=== PATIENT | female | born 1985 | race Caucasian/White ===

== ENCOUNTER 2017-06-18 14:18 | Observation (INO) | payer OTHER ==
[2017-06-18] MEDS ORDERED: SODIUM CHLORIDE 0.9% 500 ML INFUS.BAG IV ONE ×3 (14:27→18:47)
[2017-06-18 14:46] LABS: PH,URINE 7.5 (4.5-8); URINE APPEARANCE Clear; URINE BILIRUBIN Negative (NEGATIVE); URINE BLOOD Negative (NEGATIVE); URINE GLUCOSE (UA) Negative (NEGATIVE); URINE KETONE 1+ (NEGATIVE); URINE LEUK ESTERASE Negative (NEGATIVE); URINE NITRITE Negative (NEGATIVE); URINE PROTEIN 3+ (NEGATIVE); URINE UROBILINOGEN 0.2 (0.2-1.0)
[2017-06-18 14:47] LABS: URINE COLOR YELLOW
[2017-06-18 15:04] LABS: BASO % 1.6 % (0-2.0); EOS % 0.6 % (0-4.5); HEMATOCRIT 42.5 % (32.4-45.2); HEMOGLOBIN 14.1 GM/dl (10.7-15.3); LYMPH % 14.5 % (8-40); MCH 34.8 pg (25.7-33.7); MCHC 33.1 g/dl (32.0-36.0); MEAN CELL VOLUME 105.1 fl (80-96); MONO % 11.1 % (3.8-10.2); NEUT % 72.2 % (42.8-82.8); PLATELET COUNT 205 K/MM3 (134-434); RBC 4.05 M/mm3 (3.60-5.2); RDW 13.3 % (11.6-15.6); WHITE BLOOD COUNT 8.1 K/mm3 (4.0-10.8)
[2017-06-18 15:15] LABS: ACTIVATED PTT 30.3 SECONDS (24.0-38.9)
[2017-06-18 15:18] LABS: ALBUMIN 4.2 g/dl (3.5-5.0); ALK PHOS 46 U/L (32-92); ANION GAP 15 (8-16); BILIRUBIN,TOTAL 0.7 mg/dl (0.2-1.0); BLOOD UREA NITROGEN 6 mg/dl (7-18); CALCIUM 9.8 mg/dl (8.4-10.2); CHLORIDE 98 mmol/L (98-107); CO2 21 mmol/L (22-28); CREATININE 0.7 mg/dl (0.6-1.3); GLUCOSE,RANDOM 167 mg/dl (74-106); MAGNESIUM 1.5 mg/dL (1.8-2.4); POTASSIUM 4.4 mmol/L (3.5-5.1); SGOT/AST 86 U/L (10-42); SGPT/ALT 31 U/L (10-40); SODIUM 134 mmol/L (136-145); TOT PROT 7.4 g/dl (6.4-8.3)
[2017-06-18 15:20] LABS: INR 0.97 (0.82-1.09); PROTHROMBIN TIME (PATIENT) 10.9 SEC (10.2-13.0)
[2017-06-18 15:26] LABS: URINE RBC 0-2 /hpf (0-3); URINE WBC 0-1 (0-5)
[2017-06-18 15:27] LABS: URINE BACTERIA FEW /hpf (NEGATIVE)
--- NOTE | 2017-06-18 15:46 | PDOC ---
History of Present Illness <Jesus Craft - Last Filed: 06/18/17 20:22> - History of Present Illness Initial Comments: 06/18/17 19:28 Patient is a 32 year old female with no significant past medical history who was brought by EMS to the ED s/p seizure that occurred 1 hour prior to arrival. As per EMS patient was seen unresponsive and violently shaking on the floor in the restaurant, prompting the staff to call 911. EMS reports patient was conscious and confused about the situation when they appeared on scene. On arrival to ED patient states she is currently in the ED due to her mother being sick, and states she did not have a seizure. Pt noted to have urine incontinence on arrival as well. As per patient's father, patient has been currently dieting intensely and has had multiple episode of fainting over the last few months. Patient is currently talking and active in the ED. EMS reports patient's blood glucose level at the scene was 122. 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 Denies depression, SI /HI. Denies chest pain, Sob. Denies nausea, vomiting. Denies fevers, chills. Denies change in vision, head pain. Denies weakness, slurred speech. Denies any other symptoms. Allergies: None Social history: Lives with parents. +occasional glass of wine. No illicit drugs. No smoking. Surgical history: None PMD: None <Gerald Byers - Last Filed: 06/19/17 17:08> - General Chief Complaint: Seizure Stated Complaint: SEIZURE Time Seen by Provider: 06/18/17 14:26 Past History <Jesus Craft - Last Filed: 06/18/17 20:22> - Past Medical History COPD: No Other medical history: denies - Suicide/Smoking/Psychosocial Hx Smoking History: Never smoked Hx Alcohol Use: No Drug/Substance Use Hx: No Substance Use Type: None <Gerald Byers - Last Filed: 06/19/17 17:08> - Past Medical History Allergies/Adverse Reactions: Allergies Allergy/AdvReac Type Severity Reaction Status Date / Time No Known Allergies Allergy Verified 06/18/17 14:21 Home Medications: Ambulatory Orders NK [No Known Home Medication] 06/18/17 Review of Systems - Review of Systems Comments:: 06/18/17 19:28 GENERAL/CONSTITUTIONAL: No fever or chills. No weakness. HEAD, EYES, EARS, NOSE AND THROAT: No change in vision. No ear pain or discharge. No sore throat. GASTROINTESTINAL: No nausea, vomiting, diarrhea or constipation. GENITOURINARY: No dysuria, frequency, or change in urination. CARDIOVASCULAR: No chest pain or shortness of breath. RESPIRATORY: No cough, wheezing, or hemoptysis. MUSCULOSKELETAL: No joint or muscle swelling or pain. No neck or back pain. SKIN: No rash NEUROLOGIC: No headache, vertigo, change in strength/sensation. +LOC ENDOCRINE: No increased thirst. No abnormal weight change. HEMATOLOGIC/LYMPHATIC: No anemia, easy bleeding, or history of blood clots. ALLERGIC/IMMUNOLOGIC: No hives or skin allergy. <Gerald Byers - Last Filed: 06/19/17 17:08> *Physical Exam - Vital Signs Last Vital Signs Temp Pulse Resp BP Pulse Ox 98.5 F 116 H 16 123/76 100 06/18/17 14:19 06/18/17 17:11 06/18/17 17:11 06/18/17 17:11 06/18/17 17:11 <Jesus Craft - Last Filed: 06/18/17 20:22> - Vital Signs Last Vital Signs Temp Pulse Resp BP Pulse Ox 98.5 F 101 H 18 123/82 100 06/18/17 14:19 06/18/17 15:33 06/18/17 15:33 06/18/17 15:33 06/18/17 15:33 - Physical Exam Comments: 06/18/17 19:28 GENERAL: Awake, alert, and fully oriented, in no acute distress HEAD: No signs of trauma EYES: PERRLA, EOMI, sclera anicteric, conjunctiva clear ENT: +superficial abrasion to R lip +Dry mucus membrane. +Poor dentition. Auricles normal inspection, hearing grossly normal, nares patent, oropharynx clear without exudates. NECK: Normal ROM, supple, no lymphadenopathy, JVD, or masses LUNGS: Breath sounds equal, clear to auscultation bilaterally. No wheezes, and no crackles HEART: +tachycardic to 122 but regular, normal S1 and S2, no murmurs, rubs or gallops ABDOMEN: Soft, nontender, normoactive bowel sounds. No guarding, no rebound. No masses EXTREMITIES: Normal range of motion, no edema. No clubbing or cyanosis. No cords , erythema, or tenderness NEUROLOGICAL: Normal speech, cranial nerves intact, negative pronator drift, 5/ 5 strength in all 4 extremities, normal sensation to light touch in all 4 extremities, normal cerebellar exam, normal gait, normal reflexes and tone PSYCH: +Psychomotor agitation during interview SKIN: Warm, Dry, normal turgor, no rashes noted. R hand with 1mm superficial abrasion on dorsal aspect of 4th digit <ZeeshanYomna - Last Filed: 06/19/17 17:08> Heart Score/ECG Review #1 06/19/17 16:51 My read: Sinus tachy,rate 101, normal axis, no ELISHA. +prolonged QT 500 <ZeeshanDarianmna - Last Filed: 06/19/17 17:08> ED Treatment Course - LABORATORY CBC & Chemistry Diagram: 06/18/17 14:45 06/18/17 14:45 - ADDITIONAL ORDERS Additional order review: Laboratory Results 06/18/17 06/18/17 06/18/17 18:40 16:29 16:29 PT with INR INR PTT (Actin FS) D-Dimer Sodium Potassium Chloride Carbon Dioxide Anion Gap BUN Creatinine Creat Clearance w eGFR Random Glucose Lactic Acid 1.2 Calcium Magnesium Total Bilirubin AST ALT Alkaline Phosphatase Creatine Kinase 73 Troponin I Total Protein Albumin Lipase TSH Free T4 0.78 Serum , Qual Urine Color Urine Appearance Urine pH Ur Specific [place] Urine Protein Urine Glucose (UA) Urine Ketones Urine Blood Urine Nitrite Urine Bilirubin Urine Urobilinogen Ur Leukocyte Esterase Urine RBC Urine WBC Urine Bacteria Urine HCG, Qual Opiates Screen Methadone Screen Barbiturate Screen Phencyclidine Screen Ur Amphetamines Screen MDMA (Ecstasy) Screen Benzodiazepines Screen Cocaine Screen U Marijuana (THC) Screen Alcohol, Quantitative Blood Type Antibody Screen 06/18/17 06/18/17 06/18/17 14:45 14:45 14:45 PT with INR 10.9 INR 0.97 PTT (Actin FS) D-Dimer Sodium Potassium Chloride Carbon Dioxide Anion Gap BUN Creatinine Creat Clearance w eGFR Random Glucose Lactic Acid Calcium Magnesium Total Bilirubin AST ALT Alkaline Phosphatase Creatine Kinase Troponin I 0.00 Total Protein Albumin Lipase TSH Free T4 Serum , Qual Urine Color Urine Appearance Urine pH Ur Specific [place] Urine Protein Urine Glucose (UA) Urine Ketones Urine Blood Urine Nitrite Urine Bilirubin Urine Urobilinogen Ur Leukocyte Esterase Urine RBC Urine WBC Urine Bacteria Urine HCG, Qual Opiates Screen Methadone Screen Barbiturate Screen Phencyclidine Screen Ur Amphetamines Screen MDMA (Ecstasy) Screen Benzodiazepines Screen Cocaine Screen U Marijuana (THC) Screen Alcohol, Quantitative < 5.0 L Blood Type Antibody Screen 06/18/17 06/18/17 06/18/17 14:45 14:45 14:45 PT with INR INR PTT (Actin FS) D-Dimer Sodium Potassium Chloride Carbon Dioxide Anion Gap BUN Creatinine Creat Clearance w eGFR Random Glucose Lactic Acid 6.8 H* Calcium Magnesium Total Bilirubin AST ALT Alkaline Phosphatase Creatine Kinase Troponin I Total Protein Albumin Lipase TSH Free T4 Serum , Qual Negative Urine Color Urine Appearance Urine pH Ur Specific [place] Urine Protein Urine Glucose (UA) Urine Ketones Urine Blood Urine Nitrite Urine Bilirubin Urine Urobilinogen Ur Leukocyte Esterase Urine RBC Urine WBC Urine Bacteria Urine HCG, Qual Opiates Screen Methadone Screen Barbiturate Screen Phencyclidine Screen Ur Amphetamines Screen MDMA (Ecstasy) Screen Benzodiazepines Screen Cocaine Screen U Marijuana (THC) Screen Alcohol, Quantitative Blood Type O NEGATIVE Antibody Screen Negative 06/18/17 06/18/17 06/18/17 14:45 14:45 14:45 PT with INR INR PTT (Actin FS) 30.3 D-Dimer 354 Sodium 134 L Potassium 4.4 Chloride 98 Carbon Dioxide 21 L Anion Gap 15 BUN 6 L Creatinine 0.7 Creat Clearance w eGFR > 60 Random Glucose 167 H Lactic Acid Calcium 9.8 Magnesium 1.5 L Total Bilirubin 0.7 AST 86 H ALT 31 Alkaline Phosphatase 46 Creatine Kinase Troponin I Total Protein 7.4 Albumin 4.2 Lipase 130 TSH 8.30 H Free T4 Serum , Qual Urine Color Urine Appearance Urine pH Ur Specific [place] Urine Protein Urine Glucose (UA) Urine Ketones Urine Blood Urine Nitrite Urine Bilirubin Urine Urobilinogen Ur Leukocyte Esterase Urine RBC Urine WBC Urine Bacteria Urine HCG, Qual Opiates Screen Negative Methadone Screen Negative Barbiturate Screen Negative Phencyclidine Screen Negative Ur Amphetamines Screen Negative MDMA (Ecstasy) Screen Negative Benzodiazepines Screen Negative Cocaine Screen Negative U Marijuana (THC) Screen Negative Alcohol, Quantitative Blood Type Antibody Screen 06/18/17 06/18/17 06/18/17 14:35 14:35 14:20 PT with INR INR PTT (Actin FS) D-Dimer Sodium Potassium Chloride Carbon Dioxide Anion Gap BUN Creatinine Creat Clearance w eGFR Random Glucose Lactic Acid Calcium Magnesium Total Bilirubin AST ALT Alkaline Phosphatase Creatine Kinase Troponin I Total Protein Albumin Lipase TSH Free T4 Serum , Qual Urine Color Yellow Urine Appearance Clear Urine pH 7.5 Ur Specific [place] 1.025 Urine Protein 3+ H Urine Glucose (UA) Negative Urine Ketones 1+ H Urine Blood Negative Urine Nitrite Negative Urine Bilirubin Negative Urine Urobilinogen 0.2 Ur Leukocyte Esterase Negative Urine RBC 0-2 Urine WBC 0-1 Urine Bacteria Few Urine HCG, Qual Negative Opiates Screen Methadone Screen Barbiturate Screen Phencyclidine Screen Ur Amphetamines Screen MDMA (Ecstasy) Screen Benzodiazepines Screen Cocaine Screen U Marijuana (THC) Screen Alcohol, Quantitative Blood Type O NEGATIVE Antibody Screen 06/18/17 14:45 RBC 4.05 MCV 105.1 H MCHC 33.1 RDW 13.3 MPV 9.0 Neutrophils % 72.2 Lymphocytes % 14.5 Monocytes % 11.1 H Eosinophils % 0.6 Basophils % 1.6 - Medications Given in the ED: ED Medications Discontinued Medications Generic Name Dose Route Start Last Admin Trade Name Freq PRN Reason Stop Dose Admin Magnesium Sulfate 2 gm 06/18/17 15:47 06/18/17 15:59 Magnesium Sulfate IVPB 06/18/17 15:48 2 gm ONCE ONE Administration Sodium Chloride 1,000 ml 06/18/17 14:27 06/18/17 14:54 Normal Saline - IV 06/18/17 14:28 1,000 ml ONCE ONE Administration Sodium Chloride 1,000 ml 06/18/17 16:25 06/18/17 16:46 Normal Saline - IV 06/18/17 16:26 1,000 ml ONCE ONE Administration Sodium Chloride 2,000 ml 06/18/17 18:47 06/18/17 18:59 Normal Saline - IV 06/18/17 18:48 Not Given ONCE ONE <Jesus Craft - Last Filed: 06/18/17 20:22> - LABORATORY CBC & Chemistry Diagram: 06/19/17 07:30 06/19/17 07:30 - ADDITIONAL ORDERS Additional order review: Laboratory Results 06/18/17 06/18/17 06/18/17 14:45 14:45 14:45 PT with INR 10.9 INR 0.97 PTT (Actin FS) Sodium Potassium Chloride Carbon Dioxide Anion Gap BUN Creatinine Creat Clearance w eGFR Random Glucose Calcium Magnesium Total Bilirubin AST ALT Alkaline Phosphatase Troponin I 0.00 Total Protein Albumin Urine Color Urine Appearance Urine pH Ur Specific [place] Urine Protein Urine Glucose (UA) Urine Ketones Urine Blood Urine Nitrite Urine Bilirubin Urine Urobilinogen Ur Leukocyte Esterase Urine RBC Urine WBC Urine Bacteria Urine HCG, Qual Alcohol, Quantitative < 5.0 L 06/18/17 06/18/17 06/18/17 14:45 14:45 14:35 PT with INR INR PTT (Actin FS) 30.3 Sodium 134 L Potassium 4.4 Chloride 98 Carbon Dioxide 21 L Anion Gap 15 BUN 6 L Creatinine 0.7 Creat Clearance w eGFR > 60 Random Glucose 167 H Calcium 9.8 Magnesium 1.5 L Total Bilirubin 0.7 AST 86 H ALT 31 Alkaline Phosphatase 46 Troponin I Total Protein 7.4 Albumin 4.2 Urine Color Yellow Urine Appearance Clear Urine pH 7.5 Ur Specific [place] 1.025 Urine Protein 3+ H Urine Glucose (UA) Negative Urine Ketones 1+ H Urine Blood Negative Urine Nitrite Negative Urine Bilirubin Negative Urine Urobilinogen 0.2 Ur Leukocyte Esterase Negative Urine RBC 0-2 Urine WBC 0-1 Urine Bacteria Few Urine HCG, Qual Alcohol, Quantitative 06/18/17 14:35 PT with INR INR PTT (Actin FS) Sodium Potassium Chloride Carbon Dioxide Anion Gap BUN Creatinine Creat Clearance w eGFR Random Glucose Calcium Magnesium Total Bilirubin AST ALT Alkaline Phosphatase Troponin I Total Protein Albumin Urine Color Urine Appearance Urine pH Ur Specific [place] Urine Protein Urine Glucose (UA) Urine Ketones Urine Blood Urine Nitrite Urine Bilirubin Urine Urobilinogen Ur Leukocyte Esterase Urine RBC Urine WBC Urine Bacteria Urine HCG, Qual Negative Alcohol, Quantitative 06/18/17 14:45 RBC 4.05 MCV 105.1 H MCHC 33.1 RDW 13.3 MPV 9.0 Neutrophils % 72.2 Lymphocytes % 14.5 Monocytes % 11.1 H Eosinophils % 0.6 Basophils % 1.6 - Medications Given in the ED: ED Medications Discontinued Medications Generic Name Dose Route Start Last Admin Trade Name Freq PRN Reason Stop Dose Admin Sodium Chloride 1,000 ml 06/18/17 14:27 06/18/17 14:54 Normal Saline - IV 06/18/17 14:28 1,000 ml ONCE ONE Administration <Nassef,Yomna - Last Filed: 06/19/17 17:08> Medical Decision Making - Medical Decision Making 06/18/17 15:43 32yo F with multiple stressors, currently consuming 2911-3544 calories/day presents to ED with LOC, shaking movements, urine incontinence and post ictal period consistent with seizure. Given dieting, concern for electrolyte abnormalities 2/2 malnutrition. Pt denies use of stimulants or laxatives when asked. Denies toxic habits as well. Pt is noticeably agitated on exam. Will obtain labs and electrolyes, CTH, CXR, UPT, UA, UTox, rehydrate and reassess. 06/18/17 19:43 Lacate 6.8 consistent with seizure. Pt is status post 3L IVF, rpt lactate currently pending. Pt hypomagnesemic -> repleted with 2G Mg. MCV elevated consistent with malnutrition. TSH 8, Free T4 wnl, ?subclinical hypothyroidism. Utox/ethanol level wnl. CTH wnl. Pt persistently tachycardic to 120. In light of electrolyte abnormalities, tachycardia, reported malnutrition and subsequent seizure today, will admit patient for observation. Pt and parents aware of plan , pt's wishes to go home but expressed to her that this would not be a safe discharge. She agrees to stay in the hospital overnight. Pt signed out to DISTRICT ASSOCIATE JUDGE Ama Garcia. If lactate decreases, she will be admitted to [facility] for further management under Dr. Loera. 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 Sign out given to night attending for disposition. <Gerald Byers - Last Filed: 06/19/17 17:08> *DC/Admit/Observation/Transfer - Discharge Dispostion Admit: Yes <Jesus Craft - Last Filed: 06/18/17 20:22> <Gerald Byers - Last Filed: 06/19/17 17:08> Diagnosis at time of Disposition: Seizure - Discharge Dispostion Disposition: HOME Condition at time of disposition: Fair
[2017-06-18] MEDS ORDERED: MAGNESIUM SULF 50% (8.12 MEQ/2 ML-1 GM VIAL) IVPB ONE (15:47)
[2017-06-18] MEDS ORDERED: MAGNESIUM SULF 50% (8.12 MEQ/2 ML-1 GM VIAL) ONE (15:50)
[2017-06-18 16:03] LABS: LIPASE 130 U/L (73-393)
[2017-06-18 16:07] LABS: COCAINE, UR NEGATIVE ng/ml (CUTOFF=300); METHADONE, UR NEGATIVE ng/ml (CUTOFF=300); OPIATES, URI NEGATIVE ng/ml (CUTOFF=300); PHENCYCLIDINE,URINE NEGATIVE ng/ml (CUTOFF=25); URINE AMPHETAMINES NEGATIVE ng/ml (CUTOFF=500); URINE BARBITURATES NEGATIVE ng/ml (CUTOFF=200); URINE BENZODIAZEPINES NEGATIVE ng/ml (CUTOFF=200)
[2017-06-18] MEDS ORDERED: LORazepam 2 MG/ML SDV VIAL ONE (21:03)
[2017-06-18] MEDS ORDERED: levETIRAcetam 500 MG/5 ML INJECTION VIAL IVPB ONE (21:45)
[2017-06-18] MEDS ORDERED: ACETAMINOPHEN 325 MG TABLET (FP) PO PRN (22:48)
--- NOTE | 2017-06-18 23:09 | HP ---
CHIEF COMPLAINT: seizure PCP: Sonal HISTORY OF PRESENT ILLNESS: This is a 32 year old female who denies any past medical history who presented to the ED s/p seizure. She was initially confused upon arrival but now is lucid and fully oriented. As per the ED note, pt collapsed in a restaurant with seizure activity and EMS was activated. In the ED she had an episode of body shaking, but she was conscious and talking through it. Pt calmed down and stopped shaking with reassurance. 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 Seizure activity lasted 30-40 seconds and resolved prior to ativan being administered. Father reports that pt has been "extreme dieting". Pt reports that she eats very healthy but does state that she only eats about 0555-8992 calories per day. ER course was notable for: (1) seizure activity (2) magnesium level low Recent Travel: [place] PAST MEDICAL HISTORY: none PAST SURGICAL HISTORY: none Social History: Smoking: pt denies Alcohol: 1-2 glasses of wine with dinner couple times/wk Drugs: pt denies Family History: mother, father, sibling all alive and well with no medical problems Allergies No Known Allergies Allergy (Verified 06/18/17 14:21) HOME MEDICATIONS: 3 Medication Instructions Recorded NK [No Known Home Medication] 06/18/17 REVIEW OF SYSTEMS CONSTITUTIONAL: Absent: fever, chills, diaphoresis, generalized weakness, malaise, loss of appetite, weight change HEENT: Absent: rhinorrhea, nasal congestion, throat pain, throat swelling, difficulty swallowing, mouth swelling, ear pain, eye pain, visual changes CARDIOVASCULAR: Absent: chest pain, syncope, palpitations, irregular heart rate, lightheadedness , peripheral edema RESPIRATORY: Absent: cough, shortness of breath, dyspnea with exertion, orthopnea, wheezing, stridor, hemoptysis GASTROINTESTINAL: Absent: abdominal pain, abdominal distension, nausea, vomiting, diarrhea, constipation, melena, hematochezia GENITOURINARY: Absent: dysuria, frequency, urgency, hesitancy, hematuria, flank pain, genital pain MUSCULOSKELETAL: Absent: myalgia, arthralgia, joint swelling, back pain, neck pain SKIN: Absent: rash, itching, pallor HEMATOLOGIC/IMMUNOLOGIC: Absent: easy bleeding, easy bruising, lymphadenopathy, frequent infections ENDOCRINE: Absent: unexplained weight gain, unexplained weight loss, heat intolerance, cold intolerance NEUROLOGIC: Present: headache, seizure Absent: focal weakness or paresthesias, dizziness, unsteady gait, mental status changes, bladder or bowel incontinence PSYCHIATRIC: Absent: anxiety, depression, suicidal or homicidal ideation, hallucinations. PHYSICAL EXAMINATION Vital Signs - 24 hr 3 06/18/17 06/18/17 06/18/17 14:19 15:33 17:11 Temperature 98.5 F Pulse Rate 118 H Pulse Rate [ 101 H 116 H Apical] Respiratory 16 18 16 Rate Blood Pressure 143/101 Blood Pressure 123/82 123/76 [Arm] O2 Sat by Pulse 97 100 100 Oximetry (%) 3 06/18/17 06/18/17 06/18/17 20:37 21:10 22:26 Temperature Pulse Rate Pulse Rate [ 92 H 102 H 95 H Apical] Respiratory 18 18 16 Rate Blood Pressure Blood Pressure 154/98 131/90 113/85 [Arm] O2 Sat by Pulse 100 100 100 Oximetry (%) GENERAL: Awake, alert, and fully oriented, in no acute distress. HEAD: Normal with no signs of trauma. EYES: Pupils equal, round and reactive to light, extraocular movements intact, sclera anicteric, conjunctiva clear. No lid lag. EARS, NOSE, THROAT: Ears normal, nares patent, oropharynx clear without exudates. Moist mucous membranes. NECK: Normal range of motion, supple without lymphadenopathy, JVD, or masses. LUNGS: Breath sounds equal, clear to auscultation bilaterally. No wheezes, and no crackles. No accessory muscle use. HEART: Regular rate and rhythm, normal S1 and S2 without murmur, rub or gallop. ABDOMEN: Soft, nontender, not distended, normoactive bowel sounds, no guarding, no rebound, no masses. No hepatomegaly or splenomegaly. MUSCULOSKELETAL: Normal range of motion at all joints. No bony deformities or tenderness. No CVA tenderness. UPPER EXTREMITIES: 2+ pulses, warm, well-perfused. No cyanosis. No clubbing. No peripheral edema. LOWER EXTREMITIES: 2+ pulses, warm, well-perfused. No calf tenderness. No peripheral edema. NEUROLOGICAL: Cranial nerves II-XII intact. Normal speech. Normal gait. PSYCHIATRIC: Cooperative. Good eye contact. Appropriate mood and affect. SKIN: Warm, dry, normal turgor, no rashes or lesions noted, normal capillary refill. Laboratory Results - last 24 hr 3 06/18/17 06/18/17 06/18/17 14:20 14:35 14:35 WBC RBC Hgb Hct MCV MCH MCHC RDW Plt Count MPV Neutrophils % Lymphocytes % Monocytes % Eosinophils % Basophils % PT with INR INR PTT (Actin FS) D-Dimer Sodium Potassium Chloride Carbon Dioxide Anion Gap BUN Creatinine Creat Clearance w eGFR Random Glucose Lactic Acid Calcium Magnesium Total Bilirubin AST ALT Alkaline Phosphatase Creatine Kinase Troponin I Total Protein Albumin Lipase TSH Free T4 Serum , Qual Urine Color Yellow Urine Appearance Clear Urine pH 7.5 Ur Specific [place] 1.025 Urine Protein 3+ H Urine Glucose (UA) Negative Urine Ketones 1+ H Urine Blood Negative Urine Nitrite Negative Urine Bilirubin Negative Urine Urobilinogen 0.2 Ur Leukocyte Esterase Negative Urine RBC 0-2 Urine WBC 0-1 Urine Bacteria Few Urine HCG, Qual Negative Opiates Screen Methadone Screen Barbiturate Screen Phencyclidine Screen Ur Amphetamines Screen MDMA (Ecstasy) Screen Benzodiazepines Screen Cocaine Screen U Marijuana (THC) Screen Alcohol, Quantitative Blood Type O NEGATIVE Antibody Screen 3 06/18/17 06/18/17 06/18/17 14:45 14:45 14:45 WBC 8.1 RBC 4.05 Hgb 14.1 Hct 42.5 MCV 105.1 H MCH 34.8 H MCHC 33.1 RDW 13.3 Plt Count 205 MPV 9.0 Neutrophils % 72.2 Lymphocytes % 14.5 Monocytes % 11.1 H Eosinophils % 0.6 Basophils % 1.6 PT with INR INR PTT (Actin FS) 30.3 D-Dimer 354 Sodium Potassium Chloride Carbon Dioxide Anion Gap BUN Creatinine Creat Clearance w eGFR Random Glucose Lactic Acid Calcium Magnesium Total Bilirubin AST ALT Alkaline Phosphatase Creatine Kinase Troponin I Total Protein Albumin Lipase TSH Free T4 Serum , Qual Urine Color Urine Appearance Urine pH Ur Specific [place] Urine Protein Urine Glucose (UA) Urine Ketones Urine Blood Urine Nitrite Urine Bilirubin Urine Urobilinogen Ur Leukocyte Esterase Urine RBC Urine WBC Urine Bacteria Urine HCG, Qual Opiates Screen Negative Methadone Screen Negative Barbiturate Screen Negative Phencyclidine Screen Negative Ur Amphetamines Screen Negative MDMA (Ecstasy) Screen Negative Benzodiazepines Screen Negative Cocaine Screen Negative U Marijuana (THC) Screen Negative Alcohol, Quantitative Blood Type Antibody Screen 3 02/11/18 0206/18/17 06/18/17 06/18/17 14:45 14:45 14:45 16:29 18:40 WBC RBC Hgb Hct MCV MCH MCHC RDW Plt Count MPV Neutrophils % Lymphocytes % Monocytes % Eosinophils % Basophils % PT with INR 10.9 INR 0.97 PTT (Actin FS) D-Dimer Sodium 134 L Potassium 4.4 Chloride 98 Carbon Dioxide 21 L Anion Gap 15 BUN 6 L Creatinine 0.7 Creat Clearance w eGFR > 60 Random Glucose 167 H Lactic Acid 6.8 H* 1.2 Calcium 9.8 Magnesium 1.5 L Total Bilirubin 0.7 AST 86 H ALT 31 Alkaline Phosphatase 46 Creatine Kinase 73 Troponin I 0.00 Total Protein 7.4 Albumin 4.2 Lipase 130 TSH 8.30 H Free T4 0.78 Serum , Qual Negative Urine Color Urine Appearance Urine pH Ur Specific [place] Urine Protein Urine Glucose (UA) Urine Ketones Urine Blood Urine Nitrite Urine Bilirubin Urine Urobilinogen Ur Leukocyte Esterase Urine RBC Urine WBC Urine Bacteria Urine HCG, Qual Opiates Screen Methadone Screen Barbiturate Screen Phencyclidine Screen Ur Amphetamines Screen MDMA (Ecstasy) Screen Benzodiazepines Screen Cocaine Screen U Marijuana (THC) Screen Alcohol, Quantitative < 5.0 L Blood Type O NEGATIVE Antibody Screen Negative ECG sinus Tachycardia vent rate 101, QTC [address]/T changes Radiology Reports CT head, non contrast 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 There are no intracranial hemorrhages, extra-axial fluid collections or evidence of an intra-axial mass lesion. Orbital and petrous structures, cerebellopontine angles, and posterior fossa appear unremarkable. The paranasal and mastoid sinuses are clear. IMPRESSION: Normal CT scan of the head. THIS DOCUMENT HAS BEEN ELECTRONICALLY SIGNED Puneet Marroquin MD. 06/18/2017 18:23 EST ASSESSMENT/PLAN: 32yF with no past medical history presented to the ED after seizure activity. Seizure activity - discussed with neurology, given second witnessed seizure in the ED will start keppra [id number], recommend MRI/MRA - tele monitoring - repeat lytes in am hypomagnesia - repleted, repeat level in am Elevated TSH - 8.30, FT4 0.78 DVT PPX - deferred FEN - tolerating po - bmp in am - regular diet as tolerated Dispo: Pt currently requires further observation for management of her emergent condition. Visit type - Emergency Visit Emergency Visit: Yes ED Registration Date: 06/18/17 Care time: The patient presented to the Emergency Department on the above date and was hospitalized for further evaluation of their emergent condition. - New Patient This patient is new to me today: Yes Date on this admission: 06/18/17 - Critical Care Critical Care patient: No
[2017-06-18 23:38] VITALS: BMI 21.2
--- NOTE | 2017-06-19 08:10 | PN ---
Physical Exam: SUBJECTIVE: Patient seen and examined, denies any headache or blurred vision, awaiting MRI or MRA OBJECTIVE: Patient is a 32 y/o female with no significant past medical history , patient was admitted from the emergency department for new onset seizures. Vital Signs Period Temp Pulse Resp BP Sys/[place] Pulse Ox Last 24 Hr 98.1 F-98.6 F 71-118 16-20 106-154/68-101 97-100 GENERAL: The patient is awake, alert, and fully oriented, in no acute distress. HEAD: Normal with no signs of trauma. EYES: PERRL, extraocular movements intact, sclera anicteric, conjunctiva clear. No ptosis. ENT: Ears normal, nares patent, oropharynx clear without exudates, moist mucous membranes. NECK: Trachea midline, full range of motion, supple. LUNGS: Breath sounds equal, clear to auscultation bilaterally, no wheezes, no crackles, no accessory muscle use. HEART: Regular rate and rhythm, S1, S2 without murmur, rub or gallop. ABDOMEN: Soft, nontender, nondistended, normoactive bowel sounds, no guarding, no rebound, no hepatosplenomegaly, no masses. EXTREMITIES: 2+ pulses, warm, well-perfused, no edema. NEUROLOGICAL: Cranial nerves II through XII grossly intact. Normal speech, gait not observed. PSYCH: Normal mood, normal affect. SKIN: Warm, dry, normal turgor, no rashes or lesions noted Laboratory Results - last 24 hr 06/18/17 06/18/17 06/18/17 14:20 14:35 14:35 WBC RBC Hgb Hct MCV MCH MCHC RDW Plt Count MPV Neutrophils % Lymphocytes % Monocytes % Eosinophils % Basophils % PT with INR INR PTT (Actin FS) D-Dimer Sodium Potassium Chloride Carbon Dioxide Anion Gap BUN Creatinine Creat Clearance w eGFR POC Glucometer Random Glucose Lactic Acid Calcium Magnesium Total Bilirubin AST ALT Alkaline Phosphatase Creatine Kinase Troponin I Total Protein Albumin Lipase TSH Free T4 Serum , Qual Urine Color Yellow Urine Appearance Clear Urine pH 7.5 Ur Specific [place] 1.025 Urine Protein 3+ H Urine Glucose (UA) Negative Urine Ketones 1+ H Urine Blood Negative Urine Nitrite Negative Urine Bilirubin Negative Urine Urobilinogen 0.2 Ur Leukocyte Esterase Negative Urine RBC 0-2 Urine WBC 0-1 Urine Bacteria Few Urine HCG, Qual Negative Opiates Screen Methadone Screen Barbiturate Screen Phencyclidine Screen Ur Amphetamines Screen MDMA (Ecstasy) Screen Benzodiazepines Screen Cocaine Screen U Marijuana (THC) Screen Alcohol, Quantitative Blood Type O NEGATIVE Antibody Screen 06/18/17 06/18/17 06/18/17 14:45 14:45 14:45 WBC 8.1 RBC 4.05 Hgb 14.1 Hct 42.5 MCV 105.1 H MCH 34.8 H MCHC 33.1 RDW 13.3 Plt Count 205 MPV 9.0 Neutrophils % 72.2 Lymphocytes % 14.5 Monocytes % 11.1 H Eosinophils % 0.6 Basophils % 1.6 PT with INR INR PTT (Actin FS) 30.3 D-Dimer 354 Sodium Potassium Chloride Carbon Dioxide Anion Gap BUN Creatinine Creat Clearance w eGFR POC Glucometer Random Glucose Lactic Acid Calcium Magnesium Total Bilirubin AST ALT Alkaline Phosphatase Creatine Kinase Troponin I Total Protein Albumin Lipase TSH Free T4 Serum , Qual Urine Color Urine Appearance Urine pH Ur Specific [place] Urine Protein Urine Glucose (UA) Urine Ketones Urine Blood Urine Nitrite Urine Bilirubin Urine Urobilinogen Ur Leukocyte Esterase Urine RBC Urine WBC Urine Bacteria Urine HCG, Qual Opiates Screen Negative Methadone Screen Negative Barbiturate Screen Negative Phencyclidine Screen Negative Ur Amphetamines Screen Negative MDMA (Ecstasy) Screen Negative Benzodiazepines Screen Negative Cocaine Screen Negative U Marijuana (THC) Screen Negative Alcohol, Quantitative Blood Type Antibody Screen 06/18/17 06/18/17 06/18/17 14:45 14:45 14:45 WBC RBC Hgb Hct MCV MCH MCHC RDW Plt Count MPV Neutrophils % Lymphocytes % Monocytes % Eosinophils % Basophils % PT with INR INR PTT (Actin FS) D-Dimer Sodium 134 L Potassium 4.4 Chloride 98 Carbon Dioxide 21 L Anion Gap 15 BUN 6 L Creatinine 0.7 Creat Clearance w eGFR > 60 POC Glucometer Random Glucose 167 H Lactic Acid 6.8 H* Calcium 9.8 Magnesium 1.5 L Total Bilirubin 0.7 AST 86 H ALT 31 Alkaline Phosphatase 46 Creatine Kinase Troponin I Total Protein 7.4 Albumin 4.2 Lipase 130 TSH 8.30 H Free T4 Serum , Qual Urine Color Urine Appearance Urine pH Ur Specific [place] Urine Protein Urine Glucose (UA) Urine Ketones Urine Blood Urine Nitrite Urine Bilirubin Urine Urobilinogen Ur Leukocyte Esterase Urine RBC Urine WBC Urine Bacteria Urine HCG, Qual Opiates Screen Methadone Screen Barbiturate Screen Phencyclidine Screen Ur Amphetamines Screen MDMA (Ecstasy) Screen Benzodiazepines Screen Cocaine Screen U Marijuana (THC) Screen Alcohol, Quantitative Blood Type O NEGATIVE Antibody Screen Negative 06/18/17 06/18/17 06/18/17 14:45 14:45 14:45 WBC RBC Hgb Hct MCV MCH MCHC RDW Plt Count MPV Neutrophils % Lymphocytes % Monocytes % Eosinophils % Basophils % PT with INR 10.9 INR 0.97 PTT (Actin FS) D-Dimer Sodium Potassium Chloride Carbon Dioxide Anion Gap BUN Creatinine Creat Clearance w eGFR POC Glucometer Random Glucose Lactic Acid Calcium Magnesium Total Bilirubin AST ALT Alkaline Phosphatase Creatine Kinase Troponin I 0.00 Total Protein Albumin Lipase TSH Free T4 Serum , Qual Negative Urine Color Urine Appearance Urine pH Ur Specific [place] Urine Protein Urine Glucose (UA) Urine Ketones Urine Blood Urine Nitrite Urine Bilirubin Urine Urobilinogen Ur Leukocyte Esterase Urine RBC Urine WBC Urine Bacteria Urine HCG, Qual Opiates Screen Methadone Screen Barbiturate Screen Phencyclidine Screen Ur Amphetamines Screen MDMA (Ecstasy) Screen Benzodiazepines Screen Cocaine Screen U Marijuana (THC) Screen Alcohol, Quantitative Blood Type Antibody Screen 06/18/17 06/18/17 06/18/17 14:45 16:29 16:29 WBC RBC Hgb Hct MCV MCH MCHC RDW Plt Count MPV Neutrophils % Lymphocytes % Monocytes % Eosinophils % Basophils % PT with INR INR PTT (Actin FS) D-Dimer Sodium Potassium Chloride Carbon Dioxide Anion Gap BUN Creatinine Creat Clearance w eGFR POC Glucometer Random Glucose Lactic Acid Calcium Magnesium Total Bilirubin AST ALT Alkaline Phosphatase Creatine Kinase 73 Troponin I Total Protein Albumin Lipase TSH Free T4 0.78 Serum , Qual Urine Color Urine Appearance Urine pH Ur Specific [place] Urine Protein Urine Glucose (UA) Urine Ketones Urine Blood Urine Nitrite Urine Bilirubin Urine Urobilinogen Ur Leukocyte Esterase Urine RBC Urine WBC Urine Bacteria Urine HCG, Qual Opiates Screen Methadone Screen Barbiturate Screen Phencyclidine Screen Ur Amphetamines Screen MDMA (Ecstasy) Screen Benzodiazepines Screen Cocaine Screen U Marijuana (THC) Screen Alcohol, Quantitative < 5.0 L Blood Type Antibody Screen 06/18/17 06/18/17 06/19/17 18:40 22:51 06:54 WBC RBC Hgb Hct MCV MCH MCHC RDW Plt Count MPV Neutrophils % Lymphocytes % Monocytes % Eosinophils % Basophils % PT with INR INR PTT (Actin FS) D-Dimer Sodium Potassium Chloride Carbon Dioxide Anion Gap BUN Creatinine Creat Clearance w eGFR POC Glucometer 118 110 Random Glucose Lactic Acid 1.2 Calcium Magnesium Total Bilirubin AST ALT Alkaline Phosphatase Creatine Kinase Troponin I Total Protein Albumin Lipase TSH Free T4 Serum , Qual Urine Color Urine Appearance Urine pH Ur Specific [place] Urine Protein Urine Glucose (UA) Urine Ketones Urine Blood Urine Nitrite Urine Bilirubin Urine Urobilinogen Ur Leukocyte Esterase Urine RBC Urine WBC Urine Bacteria Urine HCG, Qual Opiates Screen Methadone Screen Barbiturate Screen Phencyclidine Screen Ur Amphetamines Screen MDMA (Ecstasy) Screen Benzodiazepines Screen Cocaine Screen U Marijuana (THC) Screen Alcohol, Quantitative Blood Type Antibody Screen Active Medications Generic Name Dose Route Start Last Admin Trade Name Freq PRN Reason Stop Dose Admin Acetaminophen 650 mg 06/18/17 22:48 06/18/17 22:50 Tylenol - PO 650 mg Q4H PRN Administration PAIN Levetiracetam 1,500 mg 06/19/17 10:00 Keppra Injection - IVPB BID ALLY ECG sinus Tachycardia vent rate 101, QTC [address]/T changes Radiology Reports CT head, non contrast THIS IS A PRELIMINARY REPORT FROM [facility] FINDINGS: The sulci and ventricles are normal in size. There are no intracranial hemorrhages, extra-axial fluid collections or evidence of an intra-axial mass lesion. Orbital and petrous structures, cerebellopontine angles, and posterior fossa appear unremarkable. The paranasal and mastoid sinuses are clear. IMPRESSION: Normal CT scan of the head. THIS DOCUMENT HAS BEEN ELECTRONICALLY SIGNED Puneet Marroquin MD. 06/18/2017 18:23 EST ASSESSMENT/PLAN: 1) Seizure activity - neurology consulted in ED, pending MRI/MRA and brain - continue max dose Keppra - continous cardiac monitoirng - seizure and fall precautions 2) endo - tsh elevated, free t4 0.78, wnl, subclinical hypothyroid, pt will require repeat tsh and t4 within 1 month DVT PPX - deferred FEN - tolerating po - regular diet as tolerated Dispo: Pt currently requires further observation for management of her emergent condition. Visit type - Emergency Visit Emergency Visit: Yes ED Registration Date: 06/18/17 Care time: The patient presented to the Emergency Department on the above date and was hospitalized for further evaluation of their emergent condition. - New Patient This patient is new to me today: Yes Date on this admission: 06/19/17 - Critical Care Critical Care patient: No - Discharge Referral Referred to [facility] Med P.C.: No
[2017-06-19 08:48] LABS: BASO % 0.9 % (0-2.0); EOS % 0.7 % (0-4.5); HEMATOCRIT 36.4 % (32.4-45.2); HEMOGLOBIN 12.2 GM/dl (10.7-15.3); LYMPH % 16.3 % (8-40); MCHC 33.5 g/dl (32.0-36.0); MEAN CELL VOLUME 104.6 fl (80-96); MEAN PLT VOLUME 10.1 fl (7.5-11.1); MONO % 15.6 % (3.8-10.2); NEUT % 66.5 % (42.8-82.8); PLATELET COUNT 171 K/MM3 (134-434); RBC 3.48 M/mm3 (3.60-5.2); RDW 13.1 % (11.6-15.6); WHITE BLOOD COUNT 8.4 K/mm3 (4.0-10.8)
[2017-06-19 09:44] LABS: ANION GAP 9 (8-16); BLOOD UREA NITROGEN 3 mg/dl (7-18); CALCIUM 9.1 mg/dl (8.4-10.2); CHLORIDE 104 mmol/L (98-107); CO2 23 mmol/L (22-28); CREATININE 0.5 mg/dl (0.6-1.3); GLUCOSE,RANDOM 111 mg/dl (74-106); PHOSPHOROUS 2.6 mg/dl (2.5-4.6); POTASSIUM 3.8 mmol/L (3.5-5.1); SODIUM 136 mmol/L (136-145)
[2017-06-19] MEDS ORDERED: levETIRAcetam 500 MG/5 ML INJECTION VIAL IVPB SCH (10:00)
[2017-06-19 11:04] LABS: MAGNESIUM 1.8 mg/dL (1.8-2.4)
[2017-06-19 13:16] VITALS: BP 110/66; PULSE 90; TEMP 98
--- NOTE | 2017-06-19 19:09 | CON.NEURO ---
Consult - Past Medical History ...LMP: 06/12/17 ...: No - Alcohol/Substance Use Hx Alcohol Use: No - Smoking History Smoking history: Never smoked Home Medications - Allergies Allergies/Adverse Reactions: Allergies Allergy/AdvReac Type Severity Reaction Status Date / Time No Known Allergies Allergy Verified 06/18/17 14:21 - Home Medications Home Medications: Ambulatory Orders NK [No Known Home Medication] 06/18/17 Physical Exam-Neuro Vital Signs: Vital Signs Temperature 98 F 06/19/17 13:00 Pulse Rate 90 06/19/17 13:00 Respiratory Rate 16 06/19/17 15:50 Blood Pressure 110/66 06/19/17 13:00 O2 Sat by Pulse Oximetry (%) 100 06/19/17 15:50 Labs: CBC, BMP 06/19/17 07:30 06/19/17 07:30 INR, PTT INR 0.97 (0.82-1.09) 06/18/17 14:45 Assessment/Plan cc episode of seizure HPI 32 year old female with no prior medical history , she was brought in for two episode of seizure. Patient magnesium was low , and she was given magnesium . Patient had episode of generalized tonic clonic activity. She had one more episode in hospital she was loaded with keppra and was started on 1500 mg iv bid. She has been under lot of stress, as she is on a special diet to loose weight, Her mom was diagnosed with ovarial cancer. She has recently been laid off from her job. She has been living with her parent. She was in restaurant and talking with her financee , while she had this episode. Family think that she has been doing extreme dieting. She had generalized tonic clonic activity and she had post ictal confusion. There was no incontinence or tongue bite during seizure. Social History: Smoking: pt denies Alcohol: 1-2 glasses of wine with dinner couple times/wk Drugs: pt denies Family History: mother, father, sibling all alive and well with no medical problems Allergies No Known Allergies Allergy (Verified 06/18/17 14:21) FH,SH ROS was normal Neurological Examination Alert oriented x 3, speech is normal, able to follow command CN all intact, eomi, pupils is reactive , no face asymmetry Motor 5/5 all extremity and reflex are normal FTN , HTS i snormal she is able to walk on toe and heel and able to walk on straight line sensation is normal reflex are normal ct head adn mri of brain was normal Assessment-- First episode of generalized tonic clonic seizure, seems it was induced ( etreme dieting and Mg was low, recent lost her job, mother diagnosed with ovarian cancer) Plan- spoke to great length to start medication, We mutuallly agree to continue for two weeks and later patient to decide if she wishes to continue medication. At this time, we do not have to continue for fdc as it is induced by stressors and mri of brain is normal and exam is normal - follow up outpatient and EEG can be done - advise to continue keppra 750 mg po bid - seizure precautions were discussed at great length including swimming alone , driving Thanking you so much Alvin Amaral
--- NOTE | 2017-06-19 21:35 | DS ---
Physical Exam: SUBJECTIVE: Patient seen and examined. No complaints on exam. No further seizure activity. OBJECTIVE: Vital Signs 3 Period Temp Pulse Resp BP Sys/[place] Pulse Ox Last 24 Hr 98 F-98.6 F 71-95 16-20 106-123/66-85 100-100 PHYSICAL EXAM GENERAL: The patient is awake, alert, and fully oriented, in no acute distress. HEAD: Normal with no signs of trauma. EYES: PERRL, extraocular movements intact, sclera anicteric, conjunctiva clear. ENT: Ears normal, nares patent, oropharynx clear without exudates, moist mucous membranes. NECK: Trachea midline, full range of motion, supple. LUNGS: Breath sounds equal, clear to auscultation bilaterally, no wheezes, no crackles, no accessory muscle use. HEART: Regular rate and rhythm, S1, S2 without murmur, rub or gallop. ABDOMEN: Soft, nontender, nondistended, normoactive bowel sounds, no guarding, no rebound, no hepatosplenomegaly, no masses. EXTREMITIES: 2+ pulses, warm, well-perfused, no edema. NEUROLOGICAL: Cranial nerves II through XII grossly intact. Normal speech, gait not observed. PSYCH: Normal mood, normal affect. SKIN: Warm, dry, normal turgor, no rashes or lesions noted. LABS 3 06/18/17 06/19/17 06/19/17 22:51 06:54 07:30 WBC 8.4 RBC 3.48 L Hgb 12.2 D Hct 36.4 MCV 104.6 H MCH 35.0 H MCHC 33.5 RDW 13.1 Plt Count 171 MPV 10.1 Neutrophils % 66.5 Lymphocytes % 16.3 Monocytes % 15.6 H Eosinophils % 0.7 Basophils % 0.9 Sodium Potassium Chloride Carbon Dioxide Anion Gap BUN Creatinine POC Glucometer 118 110 Random Glucose Calcium Phosphorus Magnesium 3 06/19/17 06/19/17 07:30 17:40 WBC RBC Hgb Hct MCV MCH MCHC RDW Plt Count MPV Neutrophils % Lymphocytes % Monocytes % Eosinophils % Basophils % Sodium 136 Potassium 3.8 Chloride 104 Carbon Dioxide 23 Anion Gap 9 BUN 3 L D Creatinine 0.5 L D POC Glucometer 104 Random Glucose 111 H D Calcium 9.1 Phosphorus 2.6 Magnesium 1.8 Radiology Reports MRI/MRA Brain without contrast FINDINGS: There is no abnormal restricted diffusion within the brain. There is no extra-axial collection. Normal size and configuration of the ventricles. No hydrocephalus. No evidence of intra-axial hemorrhage. There are no mass effects. There is no midline shift. No significant T2/FLAIR signal abnormalities within the brain. Flow related signal voids are present in the central arteries of the [place] and the major dural sinuses. Normal size of the pituitary gland for age. There is a subcentimeter pineal gland cyst. There are no fluid levels in the visualized paranasal sinuses or mastoid air cells. Anterior circulation: There is flow-related enhancement within the intracranial internal carotid arteries, anterior cerebral and middle cerebral arteries with no significant stenosis. There is flow -related enhancement within bilateral posterior communicating arteries, anterior communicating artery and origins of bilateral ophthalmic arteries. The right A1 segment is minimally dominant. Posterior circulation: There is flow-related enhancement within the intradural vertebral arteries, the basilar artery and central segments of bilateral posterior cerebral arteries, with no significant stenosis. The left P1 segment is hypoplastic, but patent with significant contribution of flow via the PCOM. There is flow-related enhancement within the origins of bilateral superior cerebellar arteries, right anterior-inferior cerebellar artery and bilateral posterior-inferior cerebellar arteries. There is no evidence of aneurysm or gross AVM in the [place]. Please note that cerebral aneurysms smaller than 2 mm and very small arteriovenous malformations are beyond the resolution of MRA. IMPRESSION: 1. No evidence of infarction, intra-axial mass or extra-axial collection. No mass effects or hydrocephalus. 2. No evidence of aneurysm, gross AVM or significant stenosis in the [place]. Reported By: Rafy Rivera DO 06/19/17 1332 HOSPITAL COURSE: Date of Admission:06/18/17 Date of Discharge: 06/19/17 This is a 32 year old female who presented to the ED after a seizure. She then had another seizure in the emergency department and was thus admitted for further observation. Neurology was consulted and the patient was started on keppra. MRI/MRA was completed and there were no acute findings. Pt was evaluated by neurology and cleared for discharge home on keppra. Keppra was e- scribed to pt pharmacy. Discussed seizure precautions with pt at length. Lab evaluation revealed slightly elevated tsh with normal Ft4. She was not started on synthroid. Pt is to f/u with neurology in 2 weeks and her PCP in one month. The importance of proper follow up was stressed with patient and her mother. Minutes to complete discharge: 40 Discharge Summary Reason For Visit: SYNCOPE Current Active Problems Seizure (Acute) Condition: Good - Instructions Diet, Activity, Other Instructions: Eat a regular, healthy diet. Increase your daily caloric intake. Advised intake is 1800 kcal / day. F/u with your PCP (Primary care provider) who can discuss healthy dieting options. F/U with your PCP within 1-2 months for f/u thyroid testing. NO DRIVING UNTIL CLEARED BY NEUROLOGY! Return to the ED for any further seizure activity. Referrals: Alvin Amaral MD [Staff Physician] - 2 Weeks (f/u within 2 weeks. Call his office for an appointment) Gabriel Pruitt MD [Staff Physician] - Disposition: HOME - Home Medications Comprehensive Discharge Medication List: Ambulatory Orders NK [No Known Home Medication] 06/18/17 levETIRAcetam [Keppra -] 750 mg PO BID #28 tablet 06/19/17 This patient is new to me today: No Emergency Visit: Yes ED Registration Date: 06/18/17 Care time: The patient presented to the Emergency Department on the above date and was hospitalized for further evaluation of their emergent condition. Critical Care patient: No - Discharge Referral Referred to [facility] Med P.C.: No
--- NOTE | 2017-06-21 13:13 | EKG ---
Test Reason : Blood Pressure : / mmHG Vent. Rate : 101 BPM Atrial Rate : 101 BPM P-R Int : 130 ms QRS Dur : 092 ms QT Int : 386 ms P-R-T Axes : 043 077 039 degrees QTc Int : 500 ms SINUS TACHYCARDIA OTHERWISE NORMAL ECG NO PREVIOUS ECGS AVAILABLE Confirmed by DAYRON CARTER MD ([id number]) on 06/21/2017 1:13:17 PM Referred By: Levi Stein Confirmed By:DAYRON CARTER MD
== END 2017-06-19 21:49 | disposition home or self-care (01) ==
LOC: FER 14:18 → FM/S 20:23 → INTOOBSV 20:49 → UNDOADMOB 20:49 → FM/S 20:49
PROVIDERS: ADMIT Internal Medicine; ATTEND Nurse Practitioner Family
PROC: 3E033GC Introduction of Other Therapeutic Substance into Peripheral Vein, Percutaneous Approach (ICD-10-PCS; principal; 2017-06-18)
PROC: 3E0337Z Introduction of Electrolytic and Water Balance Substance into Peripheral Vein, Percutaneous Approach (ICD-10-PCS; 2017-06-18)
DX: R56.9 Unspecified convulsions (principal); E83.42 Hypomagnesemia; R94.6 Abnormal results of thyroid function studies
CPT/HCPCS: 36415; 70450-TC; 70544-TC; 70551-TC; 71045-TC-FY; 80048; 80053; 80307; 81003; 81015; 82550; 82962; 83605; 83690; 83735; 84100; 84439; 84443; 84484; 84703; 85025; 85379; 85610; 85730; 86850; 86900; 86901; 87077; 87086; 93005; 96374; 96375; 96376; 99283-25; G0378